=== PATIENT | female | born 1965 | race Caucasian/White ===

== ENCOUNTER 2018-09-01 15:38 | Outpatient (REF) | payer MEDICAID, SELFPAY ==
--- NOTE | 2018-09-01 15:30 | PAPFT_PTH ---
PATIENT: Lety Calvo LOC: [facility]#:[id number] AGE/SX: 53/F ROOM: RE09/01/[address]: Montserrat Galvin : 1965 BED: DIS: 09/01/2018 SPEC #: [id number] RECD: 09/04/18 13:07 STATUS: DARIUSZ REAltagracia #: [id number] ALINA: 09/01/18 15:[address]: Montserrat Galvin DEPT: [facility] Cytology RECD BY: Niesha Wolf ENTERED: 09/04/18 13:07 SP TYPE: PAPFT OTHR DR: Gail Abdul Tissues: 1 - CX/ENDOCX FOR PAP SMEARS Procedures: PAP THIN PREP/UVM Screening HPV DNA PROBE Comments: [id number] (CHLAMYDIA/GC)
[2018-09-01 21:11] LABS: TSH (W/Ref FT4) 0.61 uIU/mL (0.358-3.74)
[2018-09-05 14:18] LABS: GC Result Negative; Specimen Description SEE COMMENTS
[2018-09-05 15:12] LABS: Chlamydia Result Positive
== END 2018-09-01 15:58 ==
LOC: NCHCN 15:38
PROVIDERS: PCP Family Medicine; Visit Provider Nurse Practitioner Family
DX: R30.0 Dysuria (principal); Z11.3 Encounter for screening for infections with a predominantly sexual mode of transmission; Z12.4 Encounter for screening for malignant neoplasm of cervix; Z11.51 Encounter for screening for human papillomavirus (HPV)
CPT/HCPCS: 87077; 87491; 87591; 88142; 84443; 87086; 87186; 87624

== ENCOUNTER 2018-09-06 14:06 | Outpatient (REF) | payer MEDICAID, SELFPAY ==
[2018-09-08 10:49] LABS: HIV-1/2 Ag & Ab Screen Negative (NEGAT)
[2018-09-08 13:58] LABS: Syphilis Serology (RPR) Negative (Negative)
== END 2018-09-06 14:26 ==
LOC: NCHCN 14:06
PROVIDERS: PCP Family Medicine; Visit Provider Nurse Practitioner Family
DX: Z20.2 Contact with and (suspected) exposure to infections with a predominantly sexual mode of transmission (principal); Z11.4 Encounter for screening for human immunodeficiency virus [HIV]; Z11.3 Encounter for screening for infections with a predominantly sexual mode of transmission
CPT/HCPCS: 87389; 86592

== ENCOUNTER 2019-11-14 15:47 | Emergency (ER) | payer MEDICAID, SELFPAY ==
[2019-11-14 15:50] VITALS: BP 133/84; PULSE 74; RESP 16; TEMP 36.5; O2SAT 98
--- NOTE | 2019-11-14 16:35 | DI.RAD_ITS ---
EXAM: XR FINGER LT RING CLINICAL HISTORY: jammed, pain TECHNIQUE: COMPARISON: No exams were available for comparison FINDINGS: Three views of the ring finger were obtained. No fracture is seen. Mild degenerative changes of th e IP joints noted. IMPRESSION:
--- NOTE | 2019-11-14 16:51 | DI.VRAD_ITS ---
PROCEDURE INFORMATION: Exam: XR Left Finger(s) Exam date and time: 11/14/2019 4:29 PM Age: 54 years old Clinical indication: Finger(s); Patient HX: Left ring finger pain. X2 hours ago. TECHNIQUE: Imaging protocol: XR Left fingers. Views: Minimum 2 views. COMPARISON: No relevant prior studies available. FINDINGS: Bones/joints: No acute fracture. Joint spaces are maintained. Soft tissues: Normal. IMPRESSION: No acute findings. Dictated and Authenticated by: Manoj Foley MD. Ordering:SHEA Tipton MD
--- NOTE | 2019-11-14 16:54 | W.ED.GENAD ---
Discharge Plan Disposition Patient Disposition: HOME Discharge Details Chief Complaint: Orthopedic Clinical Impression: Sprain of left ring finger Primary Care Provider: Gail Abdul ED Provider: Saeed Madrigal Home Meds and New Rx's Prescriptions: No Action bupropion HCl [Wellbutrin SR] 100 mg Tablet Sustained-Release 12 Hr 100 mg PO BID RF: 0 Discharge Instructions Additional Instructions: Please take ibuprofen over the counter. Take 600mg by mouth every 6 hours as needed for pain. Please use splint for the next 1 week. If pain or deformity persist, please follow-up with orthopedics. Please contact your primary care physician to arrange follow-up. Return to the ER for any worsening or new concerning symptoms. Referrals: Vel Mosley MD [ [facility] STAFF PHYSICIAN] - Medical Decision Making 54-year-old female here after jamming her left fourth digit, tender PIP. X-ray reviewed and interpreted by radiology: No acute findings. Suspect finger sprain. Finger splint applied. Advised follow-up orthopedics if pain persist. HPI General Date/Time Provider Initiated Documentation: 11/14/19 16:10. Related Data Home Medications Medication Instructions Recorded Confirmed bupropion HCl [Wellbutrin SR] 100 mg PO BID 11/14/19 11/14/19 Allergies Allergy/AdvReac Type Severity Reaction Status Date / Time No Known Allergies Allergy Unverified 11/14/19 15:53 General Stated Complaint: Orthopedic JHONNY: 4 PFSH Social History Smoking/Tobacco Use Status: Current every day Tobacco Type: cigarettes Alcohol Intake: never Drug use: Never Substance use type: does not use Do you feel safe at home: Yes Do you feel safe in your relationship?: Yes Exam Const General: cooperative and healthy appearing Extrem Left upper extremity: hand Details: neuromotor exam normal, neurosensory exam normal, tenderness Location: of the 4th digit Location: at the PIP joint, abnormal ROM of finger (4th digit - difficulty fully extending, strength normal) and other (no swan neck) Course Vital Signs Vital signs: Vital Signs Temperature 36.5 C 11/14/19 15:50 Pulse 74 11/14/19 15:50 Respiratory Rate 16 11/14/19 15:50 Blood Pressure 133/84 11/14/19 15:50 Pulse Oximetry 98 11/14/19 15:50 Temperature 36.5 C 11/14/19 15:50 Temperature Source Skin 11/14/19 15:50 Pulse 74 11/14/19 15:50 Respiratory Rate 16 11/14/19 15:50 Respiratory Effort Non-Labored 11/14/19 15:53 Blood Pressure 133/84 11/14/19 15:50 Blood Pressure Position Sitting 11/14/19 15:50 Pulse Oximetry 98 11/14/19 15:50 Oxygen Delivery Method Room Air 11/14/19 15:50 Oxygen Flow Rate 0 11/14/19 15:50 Pain Level 6 11/14/19 15:50
== END 2019-11-14 17:55 | disposition home or self-care (01) ==
PROVIDERS: Emergency Provider Student in an Organized Health Care Education/Training Program; PCP Family Medicine
DX: S63.615A Unspecified sprain of left ring finger, initial encounter (principal); X58.XXXA Exposure to other specified factors, initial encounter
CPT/HCPCS: 29130; 99283; 73140; 99281

== ENCOUNTER 2020-08-27 10:38 | Emergency (ER) | payer MEDICAID, SELFPAY ==
[2020-08-27] VITALS (41 sets, daily range): BP systolic 96–143; BP diastolic 57–97; PULSE 60–86; RESP 9–23; TEMP 36.9; O2SAT 95–99
--- NOTE | 2020-08-27 10:30 | RT.EKG_ITS ---
APPROVED REPORT Exam: Resting ECG Patient Location: E HR:85 bpm ECG Measurements Heart Rate 85 AXIS OR 153 P 83 QRSd 94 QRS 89 QT 373 T 47 QTc 445 Conclusion Sinus rhythm...normal P axis, V-rate 60- 99
--- NOTE | 2020-08-27 10:58 | ED.GENADUL_ITS ---
Discharge Plan Disposition Patient Disposition: HOME Condition: Improving Discharge Details Clinical Impression: Atypical chest pain Primary Care Provider: Gail Abdul ED Provider: Jonatan Gonzalez Home Meds and New Rx's Prescriptions: Continued bupropion HCl [Wellbutrin SR] 100 mg Tablet Sustained-Release 12 Hr 100 mg PO TID RF: 0 Discharge Instructions Instructions: Chest Pain (ED) Additional Instructions: We will ask our care management team to arrange a follow-up for you at [facility]. As we discussed, you may benefit from a referral for outpatient stress testing. Home to rest today. Continue your previously prescribed Wellbutrin. Avoid fatty or spicy foods. The small, frequent sips of fluid so that you maintain hydration. Referrals: Gail Abdul [Primary Care Provider] - Medical Decision Making 55-year-old female presents from home. States she had approximately 20 minutes of anterior chest pressure this morning, dissipated on its own and was not associated with shortness of breath or palpitations. She arrives to the ER improved. Diagnosis includes PE, acute coronary syndrome, atypical chest pain or gastritis. Patient placed on nurse monitoring, screening laboratories, EKG, chest x-ray obtained. CBC, comprehensive, D-dimer, and troponin x2 are all within normal limits. Patient remains asymptomatic during her entire stay on a nurse monitoring. We will arrange outpatient follow-up with Dr. Abdul in clinic. May consider outpatient stress testing for this 55-year-old female as she does have a family history of coronary artery disease. Stable for discharge to home at this time. Medical Records Medical records reviewed: Yes I reviewed the patient's medical records. Lab Data Lab results reviewed: Yes I reviewed the patient's lab results. Labs: Laboratory Results - last 24 hr 08/27/20 08/27/20 08/27/20 10:55 10:55 10:55 WBC 8.10 RBC 4.65 Hgb 14.1 Hct 42.5 MCV 91.4 MCH 30.3 MCHC 33.2 RDW 12.0 Plt Count 257 MPV 9.0 Immature Gran % 0.2 Neutrophils % 54.5 Lymphocytes % 35.9 Monocytes % 5.3 Eosinophils % 3.6 Basophils % 0.5 Nucleated RBC % 0 Absolute Neutrophils 4.41 Absolute Lymphocytes 2.91 Absolute Monocytes 0.43 Absolute Eosinophils 0.29 Absolute Basophils 0.04 D-Dimer 285 Sodium 141 Potassium 4.1 Chloride 106 Carbon Dioxide 26.9 Anion Gap 8.1 BUN 13 Creatinine 0.82 Estimated GFR/1.73 m2 >= 60.00 Glucose 98 Calcium 9.1 Magnesium 2.1 Total Bilirubin 0.4 AST 16 ALT 23 Alkaline Phosphatase 77 Troponin I < 0.05 Total Protein 6.9 Albumin 4.0 Lipase 08/27/20 08/27/20 10:55 13:55 WBC RBC Hgb Hct MCV MCH MCHC RDW Plt Count MPV Immature Gran % Neutrophils % Lymphocytes % Monocytes % Eosinophils % Basophils % Nucleated RBC % Absolute Neutrophils Absolute Lymphocytes Absolute Monocytes Absolute Eosinophils Absolute Basophils D-Dimer Sodium Potassium Chloride Carbon Dioxide Anion Gap BUN Creatinine Estimated GFR/1.73 m2 Glucose Calcium Magnesium Total Bilirubin AST ALT Alkaline Phosphatase Troponin I < 0.05 Total Protein Albumin Lipase 126 HPI General Mode of arrival: ambulatory . Date/Time Provider Initiated Documentation: 08/27/20 10:39 . Limitations to Documentation: no limitations . Information obtained by: patient . History of Present Illness 55 year old F presents to the emergency department with the chief complaint of Chest pain this morning, described as moderate, Quality is described as dull, and is localized to the chest. Patient reports no radiation. Patient started experiencing this minute(s) and it has been now resolved. No relieving factors improve symptom(s), No exacerbating factors reported . Patient notes other (Left sinus pressure); denies fever/chills and shortness of breath. Patient did receive the following treatments prior to arrival, none Related Data Home Medications Medication Instructions Recorded Confirmed bupropion HCl [Wellbutrin SR] 100 mg PO TID 11/14/19 08/27/20 Allergies Allergy/AdvReac Type Severity Reaction Status Date / Time No Known Allergies Allergy Unverified 08/27/20 10:54 General Stated Complaint: Chest Pain JHONNY: 2 Review of Systems Narrative: No leg pain or swelling. Has otherwise been well. Notes previous episode of chest pressure this spring that resolved after 10 minutes. Now feeling well. Complains of mild sinus fullness that feels like allergies. 8 systems reviewed and otherwise negative [facility] Social History Smoking/Tobacco Use Status: Current every day Tobacco Type: cigarettes Alcohol Intake: never Drug use: Never Substance use type: does not use Do you feel safe at home: Yes Do you feel safe in your relationship?: Yes Exam Narrative Exam Narrative: GEN: awake, alert, oriented 3. Pleasant, well groomed, interactive. HEAD: Normocephalic, atraumatic ENT: Mucous membranes moist, oropharynx unremarkable, tympanic membranes clear bilaterally external ear exam unremarkable EYES: PERRL, EOMI NECK: Full ROM, no KEESHA, no menigismus CHEST/RESP: Nontender, clear to auscultation bilateral, no wheeze/rhonchi/rales CARDIOVASCULAR: RRR, no murmur, rub luke. 2+ Rad pulse bilateral ABDOMEN: Soft, nontender, no mass. +Bowel sounds EXT: Full ROM, no edema, no rash Neuro: Grossly normal neurologic exam, conversant, interactive. Psych: Speech fluent, thoughts congruent, affect normal Course Vital Signs Vital signs: Vital Signs Temperature 36.5 C 08/27/20 10:39 Pulse 89 08/27/20 10:39 Respiratory Rate 16 08/27/20 10:39 Blood Pressure 118/68 08/27/20 10:39 Pulse Oximetry 87 L 08/27/20 10:39 Temperature 36.9 C 08/27/20 10:42 Temperature Source Temporal Artery Scan 08/27/20 10:42 Pulse 74 08/27/20 10:42 Respiratory Rate 15 08/27/20 10:42 Respiratory Effort Non-Labored 08/27/20 10:53 Blood Pressure 142/88 H 08/27/20 10:42 Blood Pressure Position Supine 08/27/20 10:42 Pulse Oximetry 99 08/27/20 10:42 Oxygen Delivery Method Room Air 08/27/20 10:42 Oxygen Flow Rate 0 08/27/20 10:42 Pain Level 1 08/27/20 10:42 Comment 08/27/20 10:42
[2020-08-27 11:14] LABS: Abs Immature Grans 0.02 10^3/uL (0.0-0.06); Absolute Basophil Count 0.04 10^3/uL (0.0-0.2); Absolute Eosinophil Count 0.29 10^3/uL (0.0-0.7); Absolute Lymphocyte Count 2.91 10^3/uL (1.2-3.4); Absolute Monocyte Count 0.43 10^3/uL (0.1-0.8); Absolute Neutrophil Count 4.41 10^3/uL (1.2-6.7); Basophils % 0.5; Eosinophils % 3.6; HCT 42.5 % (36.0-46.0); HGB 14.1 g/dL (11.2-15.7); Immature Grans % 0.2; Lymphocytes % 35.9; MCH 30.3 pg (27.0-33.0); MCHC 33.2 % (32.0-36.0); MCV 91.4 fL (80-95); Monocytes % 5.3; Neutrophils % 54.5; Nucleated RBC 0 %; Platelet Count 257 10^3/uL (130-400); RBC 4.65 10^6/uL (3.93-5.22); RDW-SD 40.1 fL
[2020-08-27 11:24] LABS: Lipase 126 U/L (73-393)
[2020-08-27 11:30] LABS: ALT 23 U/L (14-59); AST 16 U/L (15-37); Alkaline Phosphatase 77 U/L (46-116); Anion Gap 8.1 mmol/L (3-11); BUN 13 mg/dL (7-18); Bilirubin, Total 0.4 mg/dL (0.2-1.0); CO2 26.9 mmol/L (21.0-32.0); CREATININE 0.82 mg/dL (0.55-1.02); Calcium 9.1 mg/dL (8.5-10.1); Chloride 106 mmol/L (98-107); Glucose 98 mg/dL (74-106); Magnesium 2.1 mg/dL (1.8-2.4); Potassium 4.1 mmol/L (3.5-5.1); Sodium 141 mmol/L (136-145); Total Protein 6.9 g/dL (6.4-8.2)
[2020-08-27 11:41] LABS: Troponin I < 0.05 ng/mL (<0.06)
--- NOTE | 2020-08-27 11:45 | DI.RAD_ITS ---
EXAM: XR CHEST 2V PA LATERAL CLINICAL HISTORY: substernal chest pressure TECHNIQUE: 2D digital imaging was performed. COMPARISON: No exams were available for comparison FINDINGS: MEDIASTINUM: Normal. HEART: Normal. PULMONARY VASCULATURE: Normal. LUNGS: Clear. PLEURAL SPACE: No pleural effusion or pneumothorax. BONE:Within normal limits for the patient's age. OTHER FINDINGS:Normal. IMPRESSION: No acute pulmonary findings. DATA REPOSITORY: RADIATION DOSE DELIVERED:
[2020-08-27 11:46] LABS: D-Dimer 285 ng/mlFEU (<500)
--- NOTE | 2020-08-27 14:08 | NUR.NOTE ---
Referral faxed to [facility] Dr Abdul.Nursing Note:
[2020-08-27 14:32] LABS: Troponin I < 0.05 ng/mL (<0.06)
== END 2020-08-27 14:43 | disposition home or self-care (01) ==
PROVIDERS: Emergency Provider Emergency Medicine; PCP Family Medicine
DX: R07.89 Other chest pain (principal)
CPT/HCPCS: 36415; 80053; 83690; 93005; 99285; 71046; 83735; 84484; 85025; 85379; 93010; 99284

== ENCOUNTER 2020-09-12 08:52 | Outpatient (REF) | payer MEDICAID, SELFPAY ==
[2020-09-12 21:07] LABS: Calculated LDL 109 mg/dL (<100); Cholesterol 200 mg/dL (<200); HDL Cholesterol 50 mg/dL (40-60); Triglyceride 207 mg/dL (<150)
== END 2020-09-12 09:12 ==
LOC: NCHCN 08:52
PROVIDERS: PCP Family Medicine; Visit Provider Family Medicine
DX: E78.5 Hyperlipidemia, unspecified (principal)
CPT/HCPCS: 80061

== ENCOUNTER 2020-12-02 01:09 | Outpatient (CLI) | payer MEDICAID, SELFPAY ==
--- NOTE | 2020-12-02 | DI.MAMMO_ITS ---
EXAM: MG MAMMO SCREENING CLINICAL HISTORY: SCREENING,Z12.31 TECHNIQUE: Bilateral full field digital CC and MLO mammographic images were obtained with 3D tomosyn thesis and utilizing computer aided detection (CAD). COMPARISON: Available for comparison. FINDINGS: Masses/Architectural Distortion: None seen. Microcalcifications: No suspicious pleomorphic-type are seen. Skin Thickening/Nipple Retraction: None. IMPRESSION: 1. No significant interval change with no specific features of malignancy noted. 2. Unless there is more urgent need, screening mammography is recommended, as per [place] [employer] guidelines. BI-RADS Category 1 - Negative Breast Density - Category C - Heterogeneously dense Breast density category C or D implies that the patient has dense breast tissue. Dense breast tissue is very common and is not abnormal but dense breast tissue can make it harder to find cancer on a ma mmogram. Also, dense breast tissue may increase their breast cancer risk. This information about the result of the mammogram report was provided to the patient to raise their awareness. Use this report when you speak with the patient about their risks for breast cancer, which includes their family hist ory. At that time, you may recommend for more screening tests (Ultrasound or MRI) as they might be us eful based on their risk. A negative radiographic report should not delay biopsy if a dominant or clinically suspicious mass is present. Up to ten percent of cancers are not identified on mammography. A negative report may reinforce clinical impression. Adenosis and dense breasts may obscure an underlying neoplasm. False positive reports average 6 to 10%. Patient will receive a letter notifying them of these results.
--- NOTE | 2020-12-02 | DI.US_ITS ---
EXAM: US THYROID CLINICAL HISTORY: ENLARGED THYROID, R04.9. TECHNIQUE: Ultrasound thyroid performed using standard protocol. COMPARISON: No exams were available for comparison FINDINGS: ISTHMUS: 6 mm RIGHT LOBE: Size: 5.7 x 2.7 x 3.3 cm Echogenicity: Normal. Vascularity: Normal. Nodules: There are numerous nodule seen in the right lobe. No suspicious nodules are seen. The nodu les have a TI-RADS 1 or 2 level. No suspicious nodules are identified. The largest nodule in the ri ght lobe measures 2.6 x 2.8 x 2.9 cm. LEFT LOBE: Size: 5.8 x 3 x 2.8 cm Echogenicity: Normal. Vascularity: Normal. Nodules: There are numerous nodule seen in the left lobe. No suspicious nodules are identified. The nodules are either TI-RADS 1 or 2 level. The largest nodule measures 3 x 2.6 x 2.6 cm. OTHER FINDINGS: None. IMPRESSION: Multinodular thyroid gland. No suspicious nodules are identified. DATA REPOSITORY:
== END 2020-12-02 01:29 ==
PROVIDERS: PCP Family Medicine; Visit Provider Family Medicine
DX: E04.9 Nontoxic goiter, unspecified (principal); Z12.31 Encounter for screening mammogram for malignant neoplasm of breast
CPT/HCPCS: 77063; 77067; 76536

== ENCOUNTER 2021-02-12 02:13 | Outpatient (CLI) | payer MEDICAID, SELFPAY ==
--- NOTE | 2021-02-12 10:30 | DI.NM_ITS ---
CLINICAL HISTORY: MULTINODULAR GOITER,E04.2. COMPARISON: US US THYROID from 12/02/2020 NM NM I123 THYROID UP SC DAY 1 from 02/11/2021 NM NM I123 THYROID UP SC DAY 1 from 02/11/2021 TECHNIQUE: Formed with oral I 123 imaging performed both 6 and 24 hours period Images: At 6 hours and 24 hours. FINDINGS: I 123 uptake at 4 hours is slightly elevated at 20.5 % (normal 6-18 percent). I 123 at 24 hours is also slightly increased at 36.7 % (normal 10-35 percent) The generated scintiphotos reveal a photopenic zone in the lateral aspect of the lower half of the le ft lobe consistent with a cold nodule. When reviewing the ultrasound examination 12/02/2019 this probably corresponds to a partially cystic partially solid nodule at this level. IMPRESSION: Mild increased uptake at both 4 in 24 hours. Cold nodule in the lower half of the left thyroid lobe. This probably corresponds to the partially s olid partially cystic nodule measuring 2.6 by 2.5 cm at this location as seen on the prior ultrasound examination 12/02/2020. SNM Guidelines: Normal uptake values 10-35%. Graves Uptake >50-80%. DATA REPOSITORY:
== END 2021-02-12 02:33 ==
PROVIDERS: PCP Family Medicine; Visit Provider Internal Medicine Endocrinology, Diabetes & Metabolism
DX: E04.2 Nontoxic multinodular goiter (principal)
CPT/HCPCS: 78014; A9512

== ENCOUNTER 2022-07-04 16:42 | Emergency (ER) | payer MEDICAID, SELFPAY ==
[2022-07-04 16:45] VITALS: BP 143/79; PULSE 77; RESP 18; TEMP 37.5; O2SAT 99
--- NOTE | 2022-07-04 18:26 | ED.GENADUL_ITS ---
Discharge Plan Disposition Patient Disposition: HOME Condition: Stable Discharge Details Clinical Impression: Allergic reaction to bee sting, Localized swelling on right hand Primary Care Provider: Gail Abdul ED Provider: Tasha Grant Home Meds and New Rx's Prescriptions: Continued bupropion HCl [Wellbutrin SR] 100 mg Tablet Sustained-Release 12 Hr 300 mg PO TID Discharge Instructions Instructions: General Allergic Reaction (ED) Additional Instructions: You appear to have a localized reaction to a bee sting. This is best treated with rest, ice and elevation of your right hand. You can also take Benadryl [id number] as needed and directed for itching. Follow up with your primary care doctor in 1 week as needed. Return to the emergency department with any worsening or new concerning symptoms. Discharge Data Discharge Physician: Tasha Grant Medical Decision Making 57-year-old female presents with right hand swelling after stung by a bee 3 niko rs ago. Denies any throat or respiratory symptoms. No history of anaphylaxis to bees. She has mild to moderate edema to the right dorsal hand but no evidence of cellulitis or crepitus. Appears consistent with localized reaction to bee sting. Patient took Benadryl prior to arrival. Discussed that she would benefit from rest, ice and elevation. Discussed that I do not think she needs oral steroids but this was offered and she declined. Advised to follow up with the primary care doctor for re-evaluation. Usual and customary return precautions given prior to discharge. Medical Records Medical records reviewed: Yes I reviewed the patient's medical records. HPI General Mode of arrival: ambulatory . Date/Time Provider Initiated Documentation: 07/04/22 16:47 . Limitations to Documentation: no limitations . Information obtained by: patient . HPI Narrative: Patient is a 57-year-old female who presents with bee sting to her right hand approximately 3 hours ago. Patient states she has a beehive near her house and was stung by a wasp. She states she took 2 tabs of Benadryl but continued to have the swelling and itching on her right hand. She denies any throat swelling or itching, difficulty breathing, nausea, vomiting or dizziness. Related Data Home Medications Medication Instructions Recorded Confirmed bupropion HCl 100 mg tablet,12 hr 300 mg PO TID 11/14/19 08/27/20 sustained-release (Wellbutrin SR) Allergies Allergy/AdvReac Type Severity Reaction Status Date / Time No Known Allergies Allergy Unverified 08/27/20 10:54 General Stated Complaint: Allergic JHONNY: 3 Review of Systems All systems reviewed & are unremarkable except as noted in HPI and below Constitutional Constitutional: Reports as per HPI, Denies chills and Denies fever(s) Eyes Eyes: Denies blurry vision ENT Ears, Nose, Mouth, and Throat: Denies dizziness, Denies sore throat and Denies throat swelling Cardiovascular Cardiovascular: Denies chest pain and Denies dyspnea Respiratory Respiratory: Denies cough and Denies dyspnea Gastrointestinal Gastrointestinal: Denies abdominal pain, Denies diarrhea and Denies vomiting Genitourinary Genitourinary: Denies hematuria and Denies dysuria Musculoskeletal Musculoskeletal: Denies back pain and Denies numbness Integumentary/Breasts Skin/Breast: Denies lesions and Denies rash Neurologic Neurologic: Denies dizziness, Denies localized weakness and Denies numbness Allergic/Immunologic Allergic/Immunologic: Denies throat swelling PFSH All Active Problems (Updated 07/04/22 @ 18:28 by Tasha Grant DO) Allergic reaction to bee sting (Acute) Localized swelling on right hand (Acute) Social History Smoking/Tobacco Use Status: Current every day Tobacco Type: cigarettes Smoking risk assessment performed?: Yes Alcohol Intake: never Drug use: Never Substance use type: does not use Do you feel safe at home: Yes Do you feel safe in your relationship?: Yes Exam Const General: cooperative, healthy appearing and no acute distress HENMT Head: normal to inspection Mouth: oral mucosae normal Eyes General: appearance normal, both eyes and all related structures Neck Neck: normal visual inspection Resp Effort & Inspection: normal respiratory effort and able to speak in complete sentences Cardio Rate: regular rate Skin General skin exam: no rashes or lesions noted Neuro General: patient alert, patient awake and patient oriented x3 Motor: muscle tone normal throughout Extrem Hand/finger images: 1. Moderate edema noted to the dorsal surface of the right hand. There is no erythema, crepitus, rash or lesions. No stinger noted. Psych Appearance: grossly normal Affect: normal affect Course Vital Signs Vital signs: Vital Signs Temperature 99.5 F 07/04/22 16:45 Pulse 77 07/04/22 16:45 Respiratory Rate 18 07/04/22 16:45 Blood Pressure 143/79 H 07/04/22 16:45 Pulse Oximetry 99 07/04/22 16:45 Temperature 99.5 F 07/04/22 16:45 Temperature Source Temporal Artery Scan 07/04/22 16:45 Pulse 77 07/04/22 16:45 Respiratory Rate 18 07/04/22 16:45 Respiratory Effort Non-Labored 07/04/22 17:49 Respiratory Pattern Normal 07/04/22 17:45 Blood Pressure 143/79 H 07/04/22 16:45 Blood Pressure Position Supine 07/04/22 16:45 Pulse Oximetry 99 07/04/22 16:45 Oxygen Delivery Method Room Air 07/04/22 16:45 Oxygen Flow Rate 0 07/04/22 16:45 PAWSS Have you Been Recently Intoxicated or Drunk Within the Last 30 days?: No Have you Ever Experienced Previous Episodes of Alcohol Withdrawal?: No Have you ever Experienced Withdrawal Seizures?: No Have you ever Experienced Delirium Tremens(DT)s?: No Have you ever undergone Alcohol Rehabilitation Treatment (i.e, inpt ot outpatient treatment programs)?: No Have you ever Experienced Blackouts?: No Have you ever Combined Alcohol with other Downers within the last 90 days?: No Have you ever Combined Alcohol with any other Substance of Abuse during the last 90 days?: No Positive Blood Alcohol level on Presentation? [PCS.BAL]: No Evidence of Increased Autonomic Activity (i.e. HR>120, tremor, sweating, agitation, nausea)?: No Result: 0
[2022-07-04 18:59] VITALS: BP 143/79; PULSE 77; RESP 18; TEMP 37.5; O2SAT 99
== END 2022-07-04 18:53 | disposition home or self-care (01) ==
PROVIDERS: Emergency Provider Physician Assistant; PCP Family Medicine
DX: T63.441A Toxic effect of venom of bees, accidental (unintentional), initial encounter (principal); R22.31 Localized swelling, mass and lump, right upper limb; F17.210 Nicotine dependence, cigarettes, uncomplicated
CPT/HCPCS: 99281; 99284